=== PATIENT | male | born 1985 | race Hispanic/Latino ===

== ENCOUNTER 2018-08-16 00:15 | Emergency (ER) | payer MEDICAID | END 2018-08-16 01:08 | disposition home or self-care (01) | LOC: EDH 00:15 | DX: M77.9 Enthesopathy, unspecified (principal); I10 Essential (primary) hypertension; Z90.49 Acquired absence of other specified parts of digestive tract; Z98.890 Other specified postprocedural states; Z72.0 Tobacco use ==